=== PATIENT | male | born 1985 | race Caucasian/White ===

== ENCOUNTER 2017-04-20 23:03 | Observation (INO) | payer MEDICAID ==
[~2017-04-20] VITALS: Ht 160 cm; Wt 77.9 kg
[2017-04-20 23:53] LABS: ACETAMINOPHEN < 2 mcg/mL (10-30); BLOOD UREA NITROGEN 12 mg/dL (7-18)
[2017-04-20] MEDS ORDERED: BUSP10TA PO (23:53)
[2017-04-21 00:03] LABS: DAU SCREEN DISCLAIMER
[2017-04-21] MEDS ORDERED: POTASSIUM CHLORIDE 20 MEQ TAB.ER.PRT ONE (00:13)
[2017-04-21] MEDS ORDERED: LORazepam 1MG TABLET ONE (00:13)
[2017-04-21] MEDS ORDERED: DIPHENHYDRAMINE 25 MG CAPSULE ONE (00:13)
[2017-04-21] MEDS ORDERED: LORazepam 1MG TABLET PO ONE (00:30)
[2017-04-21] MEDS ORDERED: DIPHENHYDRAMINE 25 MG CAPSULE PO ONE (00:30)
[2017-04-21] MEDS ORDERED: ACETAMINOPHEN 325 MG TABLET PO PRN (01:30)
[2017-04-21] MEDS ORDERED: ZIPRASIDONE 20 MG INJ IM PRN (01:30)
[2017-04-21] MEDS ORDERED: ONDANSETRON ODT 4 MG PO PRN (01:30)
[2017-04-21 01:49] VITALS: BP 147/96
[2017-04-21] MEDS ORDERED: POTASSIUM CHLORIDE 20 MEQ TAB.ER.PRT PO ONE ×2 (02:00)
[2017-04-21 06:37] LABS: BLOOD UREA NITROGEN 10 mg/dL (7-18)
[2017-04-21] MEDS: NICOTINE 14MG/24 HR PATCH.TD24 TD SCH (09:00)
[2017-04-22] MEDS: NICOTINE 14MG/24 HR PATCH.TD24 TD SCH (01:00)
[2017-04-22 08:00] VITALS: BP 143/94
[2017-04-22 15:42] LABS: BLOOD UREA NITROGEN 7 mg/dL (7-18)
[2017-04-22] MEDS: LORazepam 1MG TABLET PO PRN (17:00)
[2017-04-22] MEDS: HYDROcodone/APAP 5/325 TABLET PO PRN (17:43)
[2017-04-22 19:18] VITALS: BP 151/83
[2017-04-22] MEDS: NEOSPORIN OINT, 15GM TP SCH (20:01)
[2017-04-22] MEDS ORDERED: ZIPRASIDONE 20 MG INJ IM PRN (21:00)
[2017-04-23] MEDS: HYDROcodone/APAP 5/325 TABLET PO PRN ×3 (05:51→18:00)
[2017-04-23 07:37] VITALS: BP 115/74
[2017-04-23] MEDS: NICOTINE 14MG/24 HR PATCH.TD24 TD SCH (09:00)
[2017-04-23] MEDS: NEOSPORIN OINT, 15GM TP SCH ×2 (09:00→19:34)
[2017-04-23] MEDS: LORazepam 1MG TABLET PO PRN (19:33)
[2017-04-23 19:51] VITALS: BP 129/80
[2017-04-24 07:23] VITALS: BP 161/94
[2017-04-24] MEDS: NICOTINE 14MG/24 HR PATCH.TD24 TD SCH (09:58)
[2017-04-24] MEDS: NEOSPORIN OINT, 15GM TP SCH ×2 (09:59→20:00)
[2017-04-24] MEDS: LORazepam 1MG TABLET PO PRN ×2 (10:11→15:38)
[2017-04-24] MEDS: HYDROcodone/APAP 5/325 TABLET PO PRN ×2 (10:11→20:41)
[2017-04-24 19:26] VITALS: BP 142/83
[2017-04-24 19:27] VITALS: BP 121/85
[2017-04-24] MEDS: TRAZODONE 50MG TABLET PO SCH (20:41)
[2017-04-25 05:20] LABS: BLOOD UREA NITROGEN 11 mg/dL (7-18)
[2017-04-25 08:02] VITALS: BP 127/86
[2017-04-25] MEDS: NICOTINE 14MG/24 HR PATCH.TD24 TD SCH (08:38)
[2017-04-25] MEDS: NEOSPORIN OINT, 15GM TP SCH ×2 (08:39→21:00)
[2017-04-25] MEDS: LORazepam 1MG TABLET PO PRN ×2 (11:08→15:18)
[2017-04-25 19:22] VITALS: BP 143/79
[2017-04-25] MEDS: TRAZODONE 50MG TABLET PO SCH (20:04)
[2017-04-25] MEDS: QUETIAPINE 100MG TABLET PO SCH (20:04)
[2017-04-25] MEDS: BUSPIRONE 10 MG TABLET PO SCH (20:04)
[2017-04-26 08:11] VITALS: BP 139/97
[2017-04-26] MEDS: NICOTINE 14MG/24 HR PATCH.TD24 TD SCH (09:00)
[2017-04-26] MEDS: NEOSPORIN OINT, 15GM TP SCH ×2 (09:00→20:21)
[2017-04-26] MEDS: BUSPIRONE 10 MG TABLET PO SCH ×2 (09:10→20:18)
[2017-04-26] MEDS: LORazepam 1MG TABLET PO PRN (18:34)
[2017-04-26 19:20] VITALS: BP 132/81
[2017-04-26] MEDS: QUETIAPINE 100MG TABLET PO SCH (20:18)
[2017-04-26] MEDS: TRAZODONE 50MG TABLET PO SCH (20:18)
== END 2017-04-26 22:27 ==
LOC: ED 23:59 → INTOOBSV 04-21 01:01 → EDIP 04-21 01:01 → 3E 04-21 01:48
PROVIDERS: ADMIT Internal Medicine; ATTEND Internal Medicine
DX: R45.851 Suicidal ideations (principal); E87.6 Hypokalemia; F20.9 Schizophrenia, unspecified; F15.10 Other stimulant abuse, uncomplicated; F12.10 Cannabis abuse, uncomplicated; Z59.0 Homelessness; F17.200 Nicotine dependence, unspecified, uncomplicated
CPT/HCPCS: 36415; 80048; 80307; 80329; 82040; 83735; 85025; 93005; 99285; G0378; Q0163; G0480

== ENCOUNTER 2017-05-09 22:04 | Observation (INO) | payer MEDICAID ==
[~2017-05-09] VITALS: Ht 170.2 cm; Wt 76.9 kg
[~2017-05-09 22:04] MED LIST: BUSP10TA PO
[2017-05-09 23:29] LABS: BLOOD UREA NITROGEN 10 mg/dL (7-18)
[2017-05-09 23:34] LABS: ASPARTATE AMINO TRANSFERASE 21 U/L (15-37)
[2017-05-09 23:37] LABS: ACETAMINOPHEN < 2 mcg/mL (10-30)
[2017-05-09] MEDS ORDERED: ZIPRASIDONE 20 MG INJ IM ONE (23:53)
[2017-05-10] MEDS ORDERED: ZIPRASIDONE 20 MG INJ IM ONE
[2017-05-10 08:27] LABS: DAU SCREEN DISCLAIMER
[2017-05-10] MEDS ORDERED: POTASSIUM CHLORIDE 20 MEQ TAB.ER.PRT PO ONE (11:00)
[2017-05-10] MEDS ORDERED: DOCUSATE 100 MG CAPSULE PO PRN (11:30)
[2017-05-10] MEDS ORDERED: QUETIAPINE 100MG TABLET PO PRN (11:30)
[2017-05-10] MEDS ORDERED: NICOTINE 7 MG/24 HR PATCH.TD24 TD SCH (11:30)
[2017-05-10] MEDS ORDERED: BISACODYL 10 MG SUPP PR PRN (11:30)
[2017-05-10] MEDS ORDERED: DIPHENHYDRAMINE 50 MG CAPSULE PO PRN (11:30)
[2017-05-10] MEDS ORDERED: POLYETHYLENE GLYCOL 17 GM PACKET PO PRN (11:30)
[2017-05-10] MEDS ORDERED: POTASSIUM CHLORIDE 20 MEQ TAB.ER.PRT ONE (11:40)
[2017-05-10] MEDS ORDERED: BUPR150T73 PO (11:59)
[2017-05-10] MEDS ORDERED: QUET200T4 PO (12:00)
[2017-05-10 12:01] VITALS: BP 145/98
[2017-05-10] MEDS: BUPROPION SR 150 MG TABLET PO SCH (12:32)
[2017-05-10] MEDS: NICOTINE 7 MG/24 HR PATCH.TD24 TD SCH (13:00)
[2017-05-10 19:48] VITALS: BP 150/93
[2017-05-10] MEDS: QUETIAPINE 100MG TABLET PO SCH (21:25)
[2017-05-10] MEDS: BUSPIRONE 10 MG TABLET PO SCH (21:25)
[2017-05-11 08:00] VITALS: BP 132/90
[2017-05-11 08:21] LABS: BLOOD UREA NITROGEN 6 mg/dL (7-18)
[2017-05-11] MEDS: BUPROPION SR 150 MG TABLET PO SCH (09:21)
[2017-05-11] MEDS: BUSPIRONE 10 MG TABLET PO SCH ×2 (09:21→21:48)
[2017-05-11] MEDS: NICOTINE 7 MG/24 HR PATCH.TD24 TD SCH (13:42)
[2017-05-11 20:19] VITALS: BP 133/88
[2017-05-11] MEDS: QUETIAPINE 100MG TABLET PO SCH (21:49)
[2017-05-12 08:39] VITALS: BP 129/85
[2017-05-12] MEDS: BUSPIRONE 10 MG TABLET PO SCH ×2 (08:39→21:18)
[2017-05-12] MEDS: BUPROPION SR 150 MG TABLET PO SCH (08:39)
[2017-05-12] MEDS: NICOTINE 7 MG/24 HR PATCH.TD24 TD SCH (13:15)
[2017-05-12 20:27] VITALS: BP 131/79
[2017-05-12] MEDS: QUETIAPINE 100MG TABLET PO SCH (21:18)
[2017-05-13] MEDS: BUSPIRONE 10 MG TABLET PO SCH ×2 (08:17→20:38)
[2017-05-13] MEDS: BUPROPION SR 150 MG TABLET PO SCH (08:18)
[2017-05-13 08:33] VITALS: BP 157/88
[2017-05-13] MEDS: NICOTINE 7 MG/24 HR PATCH.TD24 TD SCH (13:10)
[2017-05-13] MEDS: QUETIAPINE 100MG TABLET PO SCH (20:38)
[2017-05-13 22:13] VITALS: BP 137/86
[2017-05-14 08:00] VITALS: BP 128/96
[2017-05-14] MEDS: BUSPIRONE 10 MG TABLET PO SCH ×2 (08:53→20:17)
[2017-05-14] MEDS: BUPROPION SR 150 MG TABLET PO SCH (08:53)
[2017-05-14] MEDS: NICOTINE 7 MG/24 HR PATCH.TD24 TD SCH (13:00)
[2017-05-14 19:49] VITALS: BP 137/93
[2017-05-14] MEDS: QUETIAPINE 100MG TABLET PO SCH (20:17)
[2017-05-15 07:51] VITALS: BP 127/83
[2017-05-15] MEDS: BUSPIRONE 10 MG TABLET PO SCH (10:39)
[2017-05-15] MEDS: BUPROPION SR 150 MG TABLET PO SCH (10:39)
[2017-05-15] MEDS: NICOTINE 7 MG/24 HR PATCH.TD24 TD SCH (13:00)
[2017-05-15] MEDS ORDERED: BUPR150T13 PO (13:47)
[2017-05-15] MEDS ORDERED: QUET200T4 PO (13:48)
[2017-05-15] MEDS ORDERED: BUSP10TA PO ×2 (13:49→13:50)
== END 2017-05-15 14:40 | disposition home or self-care (01) ==
LOC: ED 23:30 → EDIP 05-10 10:32 → 3E 05-10 11:53
PROVIDERS: ADMIT Family Medicine; ATTEND Family Medicine
DX: R45.851 Suicidal ideations (principal); F20.9 Schizophrenia, unspecified; F32.9 Major depressive disorder, single episode, unspecified; E87.6 Hypokalemia; F17.200 Nicotine dependence, unspecified, uncomplicated; F19.10 Other psychoactive substance abuse, uncomplicated; Z59.0 Homelessness; Z91.5 Personal history of self-harm
CPT/HCPCS: 36415; 80048; 80053; 80307; 80329; 81003; 85025; 96372; 99285; G0378; J3486; G0480

== ENCOUNTER 2017-06-11 17:57 | Observation (INO) | payer MEDICAID ==
[~2017-06-11] VITALS: Ht 172.7 cm; Wt 75.0 kg
[~2017-06-11 17:57] MED LIST changes: +BUPR150T13 PO; +BUPR150T73 PO; +QUET200T4 PO
[2017-06-11 18:17] LABS: DAU SCREEN DISCLAIMER
[2017-06-11 18:45] LABS: ASPARTATE AMINO TRANSFERASE 25 U/L (15-37); BLOOD UREA NITROGEN 5 mg/dL (7-18)
[2017-06-11 18:48] LABS: ACETAMINOPHEN < 2 mcg/mL (10-30)
[2017-06-11] MEDS ORDERED: ONDANSETRON ODT 4 MG PO PRN (20:30)
[2017-06-11] MEDS ORDERED: POLYETHYLENE GLYCOL 17 GM PACKET PO PRN (20:30)
[2017-06-11] MEDS ORDERED: IBUPROFEN 200 MG TABLET ONE (20:43)
[2017-06-11] MEDS ORDERED: POTASSIUM CHLORIDE 20 MEQ TAB.ER.PRT PO ONE (21:00)
[2017-06-11] MEDS: QUETIAPINE 200 MG TABLET PO SCH (21:02)
[2017-06-11] MEDS: BUSPIRONE 10 MG TABLET PO SCH (21:02)
[2017-06-11] MEDS ORDERED: POTASSIUM CHLORIDE 20 MEQ TAB.ER.PRT ONE (21:15)
[2017-06-11] MEDS ORDERED: ZIPRASIDONE 20 MG INJ IM PRN (22:00)
[2017-06-11] MEDS ORDERED: ZIPRASIDONE 20 MG INJ IM ONE (22:51)
[2017-06-12] MEDS: SENNA/DOCUSATE TABLET PO SCH (08:19)
[2017-06-12] MEDS: BUSPIRONE 10 MG TABLET PO SCH ×2 (08:19→22:15)
[2017-06-12] MEDS: BUPROPION SR 150 MG TABLET PO SCH (08:19)
[2017-06-12] MEDS ORDERED: ACETAMINOPHEN 325 MG TABLET ONE (11:30)
[2017-06-12] MEDS: ACETAMINOPHEN 325 MG TABLET PO PRN (11:32)
[2017-06-12] MEDS: QUETIAPINE 200 MG TABLET PO SCH (22:15)
[2017-06-13 05:51] LABS: BLOOD UREA NITROGEN 6 mg/dL (7-18)
[2017-06-13] MEDS: SENNA/DOCUSATE TABLET PO SCH (09:00)
[2017-06-13] MEDS: BUSPIRONE 10 MG TABLET PO SCH ×2 (09:42→23:05)
[2017-06-13] MEDS: BUPROPION SR 150 MG TABLET PO SCH (09:42)
[2017-06-13] MEDS ORDERED: ACETAMINOPHEN 325 MG TABLET ONE (16:38)
[2017-06-13] MEDS: ACETAMINOPHEN 325 MG TABLET PO PRN (16:48)
[2017-06-13 22:46] VITALS: BP 142/100
[2017-06-13] MEDS: QUETIAPINE 200 MG TABLET PO SCH (23:05)
[2017-06-14 07:21] VITALS: BP 122/79
[2017-06-14] MEDS: BUSPIRONE 10 MG TABLET PO SCH ×2 (08:54→20:26)
[2017-06-14] MEDS: BUPROPION SR 150 MG TABLET PO SCH ×2 (08:54→20:26)
[2017-06-14] MEDS: SENNA/DOCUSATE TABLET PO SCH (08:56)
[2017-06-14] MEDS ORDERED: NICOTINE 21 MG/24 HR PATCH.TD24 TD ONE (15:00)
[2017-06-14 19:41] VITALS: BP 137/92
[2017-06-14] MEDS: QUETIAPINE 100MG TABLET PO SCH (20:27)
[2017-06-15 07:27] VITALS: BP 112/68
[2017-06-15] MEDS: BUSPIRONE 10 MG TABLET PO SCH ×2 (08:17→21:40)
[2017-06-15] MEDS: QUETIAPINE 100MG TABLET PO SCH ×2 (08:17→21:40)
[2017-06-15] MEDS: BUPROPION SR 150 MG TABLET PO SCH ×2 (08:17→21:40)
[2017-06-15] MEDS ORDERED: SENNA/DOCUSATE TABLET PO SCH (09:00)
[2017-06-15] MEDS: ACETAMINOPHEN 325 MG TABLET PO PRN (15:52)
[2017-06-15] MEDS: NICOTINE 21 MG/24 HR PATCH.TD24 TD SCH (15:52)
[2017-06-15 19:45] VITALS: BP 137/84
[2017-06-15] MEDS ORDERED: POLYETHYLENE GLYCOL 17 GM PACKET PO PRN (20:30)
[2017-06-15] MEDS ORDERED: ZIPRASIDONE 20 MG INJ IM PRN (20:30)
[2017-06-15] MEDS ORDERED: ONDANSETRON ODT 4 MG PO PRN (20:30)
[2017-06-15] MEDS ORDERED: ACETAMINOPHEN 325 MG TABLET PO PRN (20:30)
[2017-06-16 08:15] VITALS: BP 112/68
[2017-06-16] MEDS: BUSPIRONE 10 MG TABLET PO SCH (08:33)
[2017-06-16] MEDS: BUPROPION SR 150 MG TABLET PO SCH (08:35)
[2017-06-16] MEDS: QUETIAPINE 100MG TABLET PO SCH (08:35)
[2017-06-16] MEDS: NICOTINE 21 MG/24 HR PATCH.TD24 TD SCH (08:35)
[2017-06-16] MEDS ORDERED: SENNA/DOCUSATE TABLET PO SCH (09:00)
== END 2017-06-16 13:21 ==
LOC: ED 19:39 → EDIP 20:02 → 3E 06-13 22:41
DX: R45.851 Suicidal ideations (principal); F20.9 Schizophrenia, unspecified; E87.6 Hypokalemia; F32.9 Major depressive disorder, single episode, unspecified; Z59.0 Homelessness; Z91.19 Patient's noncompliance with other medical treatment and regimen
CPT/HCPCS: 36415; 80048; 80053; 80307; 80329; 85025; 93005; 96372; 99285; G0378; J3486; G0480

== ENCOUNTER 2017-07-08 16:41 | Observation (INO) | payer MEDICAID ==
[~2017-07-08] VITALS: Ht 175.3 cm; Wt 67.0 kg
[2017-07-08] MEDS ORDERED: ZIPRASIDONE 20 MG INJ IM ONE ×2 (17:00→17:25)
[2017-07-08 17:18] LABS: HEMATOCRIT 44.4 % (39.2-51.8); HEMOGLOBIN 14.7 g/dL (13.7-18.0); WHITE BLOOD COUNT 15.3 x10^3/uL (3.4-10)
[2017-07-08 17:30] LABS: BLOOD UREA NITROGEN 17 mg/dL (7-18)
[2017-07-08 17:35] LABS: ACETAMINOPHEN < 2 mcg/mL (10-30); ASPARTATE AMINO TRANSFERASE 150 U/L (15-37)
[2017-07-08 22:22] LABS: DAU SCREEN DISCLAIMER
[2017-07-09] MEDS ORDERED: POLYETHYLENE GLYCOL 17 GM PACKET PO PRN (05:00)
[2017-07-09] MEDS ORDERED: OXYcodone/APAP 5/325MG TABLET PO PRN (05:00)
[2017-07-09] MEDS ORDERED: BISACODYL 10 MG SUPP PR PRN (05:00)
[2017-07-09] MEDS ORDERED: DOCUSATE 100 MG CAPSULE PO PRN (05:00)
[2017-07-09] MEDS ORDERED: ONDANSETRON ODT 4 MG PO PRN (05:00)
[2017-07-09] MEDS ORDERED: ACETAMINOPHEN 325 MG TABLET PO PRN (05:00)
[2017-07-09] MEDS ORDERED: ZIPRASIDONE 20MG CAPSULE PO PRN (05:00)
[2017-07-09 06:20] LABS: HEMATOCRIT 45.1 % (39.2-51.8); WHITE BLOOD COUNT 10.4 x10^3/uL (3.4-10)
[2017-07-09 06:32] LABS: ASPARTATE AMINO TRANSFERASE 103 U/L (15-37); BLOOD UREA NITROGEN 15 mg/dL (7-18)
[2017-07-09 06:39] VITALS: BP 140/92
[2017-07-09 07:58] VITALS: BP 106/66
[2017-07-09] MEDS: NICOTINE 14MG/24 HR PATCH.TD24 TD SCH (08:49)
[2017-07-09] MEDS: ENOXAPARIN 40 MG/0.4 ML SQ SCH (08:49)
[2017-07-09] MEDS: ZIPRASIDONE 20 MG INJ IM PRN (10:15)
[2017-07-09 19:37] VITALS: BP 125/73
[2017-07-10] MEDS: ZIPRASIDONE 20 MG INJ IM PRN ×2 (00:04→11:32)
[2017-07-10 07:55] VITALS: BP 114/69
[2017-07-10] MEDS: BUPROPION SR 150 MG TABLET PO SCH (08:20)
[2017-07-10] MEDS: NICOTINE 14MG/24 HR PATCH.TD24 TD SCH (08:23)
[2017-07-10] MEDS: ENOXAPARIN 40 MG/0.4 ML SQ SCH (08:24)
[2017-07-10] MEDS ORDERED: BUSPIRONE 10 MG TABLET PO SCH (09:00)
[2017-07-10 19:52] VITALS: BP 143/93
[2017-07-10] MEDS: QUETIAPINE 100MG TABLET PO SCH (20:14)
[2017-07-10] MEDS ORDERED: QUETIAPINE 200 MG TABLET PO SCH (21:00)
[2017-07-11 08:13] VITALS: BP 125/91
[2017-07-11] MEDS: NICOTINE 14MG/24 HR PATCH.TD24 TD SCH (09:00)
[2017-07-11] MEDS: ENOXAPARIN 40 MG/0.4 ML SQ SCH (09:00)
[2017-07-11] MEDS: QUETIAPINE 100MG TABLET PO SCH ×2 (11:29→20:12)
[2017-07-11] MEDS: BUPROPION SR 150 MG TABLET PO SCH (11:29)
[2017-07-11 19:55] VITALS: BP 149/87
== END 2017-07-12 03:00 ==
LOC: ED 17:37 → INTOOBSV 07-09 02:07 → EDIP 07-09 02:07 → 3E 07-09 05:16
PROVIDERS: ADMIT Internal Medicine
DX: R45.851 Suicidal ideations (principal); F19.951 Other psychoactive substance use, unspecified with psychoactive substance-induced psychotic disorder with hallucinations; F20.9 Schizophrenia, unspecified; F41.9 Anxiety disorder, unspecified; R06.00 Dyspnea, unspecified; F31.9 Bipolar disorder, unspecified; D72.829 Elevated white blood cell count, unspecified; R74.0 Nonspecific elevation of levels of transaminase and lactic acid dehydrogenase [LDH]; F12.20 Cannabis dependence, uncomplicated; F15.20 Other stimulant dependence, uncomplicated; R45.850 Homicidal ideations; Z81.1 Family history of alcohol abuse and dependence; Z91.14 Patient's other noncompliance with medication regimen; F19.10 Other psychoactive substance abuse, uncomplicated; Z91.19 Patient's noncompliance with other medical treatment and regimen
CPT/HCPCS: 36415; 71010; 80053; 80307; 80329; 81003; 85025; 93005; 96372; 99285; G0378; J3486; G0480

== ENCOUNTER 2017-08-25 03:46 | Emergency (ER) | payer SELFPAY ==
[~2017-08-25] VITALS: Ht 175.3 cm; Wt 69.0 kg
[2017-08-25 03:48] VITALS: BP 136/91
== END 2017-08-25 04:55 | disposition home or self-care (01) ==
LOC: ED 04:49
DX: S20.369A Insect bite (nonvenomous) of unspecified front wall of thorax, initial encounter (principal); F15.10 Other stimulant abuse, uncomplicated; F17.200 Nicotine dependence, unspecified, uncomplicated; W57.XXXA Bitten or stung by nonvenomous insect and other nonvenomous arthropods, initial encounter; Y93.89 Activity, other specified; Y92.89 Other specified places as the place of occurrence of the external cause; Y99.8 Other external cause status
CPT/HCPCS: 99282

== ENCOUNTER 2017-08-28 20:59 | Observation (INO) | payer OTHER ==
[~2017-08-28] VITALS: Ht 172.7 cm; Wt 69.4 kg
[2017-08-28 21:37] LABS: DAU SCREEN DISCLAIMER
[2017-08-28 21:38] LABS: HEMATOCRIT 44.1 % (39.2-51.8); HEMOGLOBIN 14.7 g/dL (13.7-18.0); WHITE BLOOD COUNT 14.1 x10^3/uL (3.4-10)
[2017-08-28 21:50] LABS: ASPARTATE AMINO TRANSFERASE 17 U/L (15-37); BLOOD UREA NITROGEN 12 mg/dL (7-18)
[2017-08-28 21:55] LABS: ACETAMINOPHEN < 2 mcg/mL (10-30)
[2017-08-29] MEDS ORDERED: ONDANSETRON ODT 4 MG PO PRN (04:30)
[2017-08-29] MEDS ORDERED: HALOPERIDOL 5 MG/ML IM PRN (04:30)
[2017-08-29] MEDS ORDERED: ACETAMINOPHEN 325 MG TABLET PO PRN (04:30)
[2017-08-29] MEDS ORDERED: TRAZODONE 50MG TABLET PO PRN (04:30)
[2017-08-29 08:40] VITALS: BP 116/72
[2017-08-29 19:27] VITALS: BP 122/78
[2017-08-30 06:03] LABS: HEMOGLOBIN 14.4 g/dL (13.7-18.0); WHITE BLOOD COUNT 10.5 x10^3/uL (3.4-10)
[2017-08-30 07:47] VITALS: BP 123/87
[2017-08-30 19:18] VITALS: BP 131/90
[2017-08-30] MEDS: QUETIAPINE 100MG TABLET PO SCH (20:56)
[2017-08-31 08:11] VITALS: BP 110/78
[2017-08-31] MEDS: LORazepam 1MG TABLET PO PRN (09:52)
[2017-08-31] MEDS ORDERED: NICOTINE 21 MG/24 HR PATCH.TD24 TD ONE (17:30)
[2017-08-31] MEDS ORDERED: ONDANSETRON ODT 4 MG PO PRN (19:30)
[2017-08-31] MEDS ORDERED: ACETAMINOPHEN 325 MG TABLET PO PRN (19:30)
[2017-08-31] MEDS ORDERED: TRAZODONE 50MG TABLET PO PRN (19:30)
[2017-08-31 19:31] VITALS: BP 124/84
[2017-08-31] MEDS: QUETIAPINE 100MG TABLET PO SCH (20:23)
[2017-09-01] MEDS ORDERED: NICOTINE 21 MG/24 HR PATCH.TD24 TD SCH (07:30)
[2017-09-01 07:51] VITALS: BP 126/92
[2017-09-01] MEDS: LORazepam 1MG TABLET PO PRN ×3 (08:36→15:40)
[2017-09-01] MEDS: HALOPERIDOL 5 MG/ML IM PRN (16:52)
[2017-09-01 19:39] VITALS: BP 131/85
[2017-09-01] MEDS: QUETIAPINE 100MG TABLET PO SCH (21:36)
[2017-09-02 08:00] VITALS: BP 126/81
[2017-09-02] MEDS: HALOPERIDOL 5 MG/ML IM PRN (09:25)
== END 2017-09-02 15:52 ==
LOC: ED 21:10 → EDIP 08-29 02:33 → 3E 08-29 05:02
PROVIDERS: ADMIT Hospitalist; ATTEND Hospitalist
DX: R45.851 Suicidal ideations (principal); F32.3 Major depressive disorder, single episode, severe with psychotic features; F20.9 Schizophrenia, unspecified; D72.829 Elevated white blood cell count, unspecified; Z59.0 Homelessness; Z91.5 Personal history of self-harm; Z91.19 Patient's noncompliance with other medical treatment and regimen
CPT/HCPCS: 36415; 80053; 80307; 80329; 81003; 85025; 96372; 99285; G0378; J1630; G0479; G0480

== ENCOUNTER 2018-08-09 14:08 | Observation (INO) | payer MEDICAID, OTHER ==
[~2018-08-09] VITALS: Ht 175.3 cm; Wt 89.1 kg
[2018-08-09 14:47] LABS: BASOPHILS # (AUTO) 0.11 x10^3/uL (0-0.1); BASOPHILS % (AUTO) 1 % (0-1); EOSINOPHILS # (AUTO) 0.16 x10^3/uL (0-0.4); EOSINOPHILS % (AUTO) 1 % (1-7); LYMPHOCYTES # (AUTO) 2.42 x10^3/uL (1-3.4); LYMPHOCYTES % (AUTO) 17 % (22-44); MD NO; MEAN CORPUSCULAR HEMOGLOBIN 30.2 pg (27.5-34.5); MEAN CORPUSCULAR HGB CONC 34.2 g/dL (33.2-36.2); MEAN CORPUSCULAR VOLUME 88.4 fL (81-97); MEAN PLATELET VOLUME 9.3 fL (7.4-10.4); MONOCYTES # (AUTO) 1.26 x10^3/uL (0.2-0.8); MONOCYTES % (AUTO) 9 % (2-9); NEUTROPHILS # (AUTO) 10.26 x10^3/uL (1.8-6.8); NEUTROPHILS % (AUTO) 72 % (42-75); PLATELET COUNT 210 x10^3/uL (130-400); RED BLOOD COUNT 4.89 x10^6/uL (4.38-5.82); RED CELL DISTRIBUTION WIDTH 13.5 % (9.4-14.8)
[2018-08-09 14:58] LABS: ALBUMIN 4.1 g/dL (3.4-5.0); ANION GAP 13 mmol/L (5-15); CALCIUM 8.6 mg/dL (8.5-10.1); CHLORIDE 110 mmol/L (98-107)
[2018-08-09 15:03] LABS: AMPHETAMINE SCREEN, URINE Positive (Negative); BARBITURATE SCREEN, URINE Negative (Negative); BENZODIAZEPINE SCREEN, URINE Negative (Negative); CANNABINOID SCREEN, URINE Negative (Negative); COCAINE SCREEN, URINE Negative (Negative); METHADONE SCREEN, URINE Negative (Negative); OPIATE SCREEN, URINE Negative (Negative)
[2018-08-09 15:04] LABS: ACETAMINOPHEN < 2 mcg/mL (10-30); SALICYLATE LEVEL < 1.7 mg/dL (2.8-20.0)
[2018-08-09] MEDS ORDERED: QUET200T4 PO (15:27)
[2018-08-09] MEDS ORDERED: BUPR300T49 PO (15:27)
[2018-08-09] MEDS ORDERED: BUSP10TA PO (15:27)
[2018-08-09] MEDS ORDERED: BUPR150T73 PO (15:27)
[2018-08-09] MEDS ORDERED: ACETAMINOPHEN 325 MG TABLET PO PRN (17:00)
[2018-08-09] MEDS ORDERED: NICOTINE 7 MG/24 HR PATCH.TD24 TD SCH (17:00)
[2018-08-09] MEDS ORDERED: THIAMINE 100MG TABLET PO ONE (17:00)
[2018-08-09] MEDS ORDERED: LORazepam 1MG TABLET PO PRN (17:00)
[2018-08-09 19:28] VITALS: BP 134/92
[2018-08-09] MEDS ORDERED: BUPROPION SR 150 MG TABLET PO SCH (21:00)
[2018-08-09] MEDS ORDERED: BUSPIRONE 10 MG TABLET PO SCH (21:00)
[2018-08-09] MEDS ORDERED: QUETIAPINE 200 MG TABLET PO SCH (21:00)
[2018-08-10 06:14] LABS: CHLORIDE 108 mmol/L (98-107)
[2018-08-10 06:18] LABS: ALANINE AMINOTRANSFERASE 42 U/L (12-78); ALBUMIN 3.4 g/dL (3.4-5.0); ALKALINE PHOSPHATASE 82 U/L (45-117); ANION GAP 6 mmol/L (5-15); BILIRUBIN,TOTAL 0.4 mg/dL (0.2-1.0); CALCIUM 8.5 mg/dL (8.5-10.1); CREATININE 0.85 mg/dL (0.7-1.3); TOTAL PROTEIN 6.6 g/dL (6.4-8.2)
[2018-08-10 06:34] LABS: BASOPHILS # (AUTO) 0.03 x10^3/uL (0-0.1); BASOPHILS % (AUTO) 0 % (0-1); EOSINOPHILS # (AUTO) 0.33 x10^3/uL (0-0.4); EOSINOPHILS % (AUTO) 4 % (1-7); LYMPHOCYTES # (AUTO) 3.45 x10^3/uL (1-3.4); LYMPHOCYTES % (AUTO) 38 % (22-44); MD NO; MEAN CORPUSCULAR HEMOGLOBIN 30.3 pg (27.5-34.5); MEAN CORPUSCULAR HGB CONC 33.9 g/dL (33.2-36.2); MEAN CORPUSCULAR VOLUME 89.4 fL (81-97); MONOCYTES # (AUTO) 0.97 x10^3/uL (0.2-0.8); MONOCYTES % (AUTO) 11 % (2-9); NEUTROPHILS # (AUTO) 4.23 x10^3/uL (1.8-6.8); NEUTROPHILS % (AUTO) 47 % (42-75); PLATELET COUNT 146 x10^3/uL (130-400); RED BLOOD COUNT 4.25 x10^6/uL (4.38-5.82); RED CELL DISTRIBUTION WIDTH 13.6 % (9.4-14.8)
[2018-08-10] MEDS ORDERED: FOLIC ACID 1 MG TABLET PO SCH (09:00)
== END 2018-08-10 07:20 ==
LOC: ED 16:37 → EDIP 16:47 → 2N 18:01
PROVIDERS: ADMIT Hospitalist; ATTEND Hospitalist
DX: R45.851 Suicidal ideations (principal); F33.9 Major depressive disorder, recurrent, unspecified; D72.829 Elevated white blood cell count, unspecified; R73.9 Hyperglycemia, unspecified; E87.2 Acidosis; E86.0 Dehydration; F15.10 Other stimulant abuse, uncomplicated; F20.9 Schizophrenia, unspecified; F41.9 Anxiety disorder, unspecified; Z72.0 Tobacco use
CPT/HCPCS: 36415; 80048; 80053; 80307; 80329; 82040; 85025; 93005; 99285; G0378; G0480

== ENCOUNTER 2020-03-17 00:26 | Emergency (ER) | payer MEDICAID ==
[~2020-03-17] VITALS: Ht 175.3 cm; Wt 71.2 kg
[~2020-03-17 00:26] MED LIST changes: +BUPR300T49 PO
[2020-03-17 00:27] VITALS: BP 131/83
--- NOTE | 2020-03-17 01:20 | NUR ---
Patient discharge instructions given. Patient refusing to leave; security called for escort out. Patient ambulatory with a steady gait.
== END 2020-03-17 01:21 | disposition home or self-care (01) ==
LOC: ED 01:00
DX: M79.641 Pain in right hand (principal); M79.642 Pain in left hand; L24.0 Irritant contact dermatitis due to detergents; F17.210 Nicotine dependence, cigarettes, uncomplicated
CPT/HCPCS: 99406